=== PATIENT | male | born 1985 | race Caucasian/White ===

== ENCOUNTER 2023-07-21 17:04 | Emergency (ER) | payer MEDICAID ==
[~2023-07-21] VITALS: Ht 180.3 cm; Wt 73.0 kg
[2023-07-21 17:08] VITALS: O2SAT 98
[2023-07-21 17:44] LABS: BASOPHILS % 0.1 % (0.0-2.0); EOSINOPHILS % 1.7 % (0.0-5.0); HEMATOCRIT. 43.3 % (42.0-52.0); HEMOGLOBIN. 14.6 g/dL (14.0-18.0); LYMPHOCYTES % 18.7 % (20.0-50.0); MEAN CORPUSCULAR HEMOGLOBIN 30.6 pg (28.0-32.0); MEAN CORPUSCULAR HGB CONC 33.8 g/dL (31.0-37.0); MEAN CORPUSCULAR VOLUME 90.5 fL (80.0-94.0); MONOCYTES % 6.2 % (2.0-8.0); NEUTROPHILS % 73.3 % (40.0-76.0); RED BLOOD CELL COUNT 4.78 mill/uL (4.7-6.1); RED CELL DISTRIBUTION WIDTH 12.5 % (11.6-14.6); WHITE BLOOD COUNT 11.1 x1000/uL (4.5-11.0)
[2023-07-21 17:48] LABS: CLARITY URINE CLEAR (CLEAR); COLOR URINE YELLOW (YELLOW); GLUCOSE URINE NEGATIVE (NEGATIVE); KETONES URINE NEGATIVE (NEGATIVE); LEUKOCYTE ESTERASE URINE NEGATIVE (NEGATIVE); NITRITE URINE NEGATIVE (NEGATIVE); OCCULT BLOOD URINE NEGATIVE (NEGATIVE); PROTEIN URINE NEGATIVE (NEGATIVE); SPECIFIC GRAVITY URINE 1.003 (1.005-1.030); UROBILINOGEN URINE 0.2 E.U./dL (0.2-1.0)
[2023-07-21 17:48] LABS: CHLORIDE 102 mEq/L (98-107); INDEX HEMOLYSI 1 (1-3); INDEX ICTERIC 1 (1-4); INDEX LIPEMIC 1 (1-3); POTASSIUM 3.7 mEq/L (3.5-5.1); SODIUM 135 mEq/L (136-145)
[2023-07-21 17:49] LABS: DIFFERENTIAL COMMENT 1
[2023-07-21 17:55] LABS: ALANINE AMINOTRANSFERASE 46 IU/L (13-61); ALBUMIN 3.7 g/dL (3.4-5.0); ASPARTATE AMINOTRANSFERASE 17 IU/L (15-37); BILIRUBIN TOTAL 0.3 mg/dL (0.1-1.0); CALCIUM 8.7 mg/dL (8.5-10.1); CARBON DIOXIDE 30 mEq/L (21-32); GLUCOSE 102 mg/dL (70-105); PROTEIN TOTAL 7.8 g/dL (6.0-8.3); UREA NITROGEN BLOOD 12 mg/dL (7-21)
[2023-07-21 18:30] LABS: MEAN PLATELET VOLUME 8.3 fl (7.4-10.4); PLATELET 311 x1000/uL (130-400)
[2023-07-21] MEDS ORDERED: OXYCODONE HCL/ACETAMINOPHEN 5/325MG TABLET PO NR (18:45)
[2023-07-22] MEDS ORDERED: IOHEXOL-300 100 ML BOTTLE ONE (06:02)
[2023-07-22] MEDS ORDERED: ACET-2708 MT (09:03)
[2023-07-22 09:45] VITALS: BP 134/87; PULSE 82; RESP 20; TEMP 98.7
== END 2023-07-22 09:46 | disposition home or self-care (01) ==
LOC: ER 17:04
DX: R50.9 Fever, unspecified (principal)
CPT/HCPCS: 80053; 81003; 83690; 85025; 36415; 74177; 99285; Z7610; Q9967

== ENCOUNTER 2024-02-07 13:21 | Emergency (ER) | payer MEDICAID ==
[~2024-02-07] VITALS: Ht 180.3 cm; Wt 73.5 kg
[~2024-02-07 13:21] MED LIST: ACET-2708 MT
[2024-02-07 13:29] VITALS: O2SAT 97
[2024-02-07] MEDS: CYCLOBENZAPRINE 10MG TABLET PO ONE (15:45)
[2024-02-07] MEDS: ACETAMINOPHEN 500MG TABLET PO ONE (15:45)
[2024-02-07] MEDS ORDERED: CYCL10TA21 MT (15:49)
[2024-02-07] MEDS ORDERED: ACET-2708 MT (15:49)
[2024-02-07 16:11] VITALS: BP 108/56; PULSE 70; RESP 18; TEMP 97.8
== END 2024-02-07 16:12 | disposition home or self-care (01) ==
LOC: ER 13:21
DX: M54.50 Low back pain, unspecified (principal); Z88.6 Allergy status to analgesic agent
CPT/HCPCS: 99283

== ENCOUNTER 2025-03-23 09:55 | Emergency (ER) | payer OTHER ==
[~2025-03-23] VITALS: Ht 175.3 cm; Wt 66.0 kg
[~2025-03-23 09:55] MED LIST changes: +CYCL10TA21 MT
[2025-03-23 10:04] VITALS: O2SAT 100
[2025-03-23] MEDS: FLUORESCEIN SODIUM 1MG/STRIP LEFTEYE ONE (11:01)
[2025-03-23] MEDS: TETRACAINE 0.5% OPHTH DROPS 4ML LEFTEYE ONE (11:01)
[2025-03-23] MEDS ORDERED: TOBR3.5O LEFTEYE (11:34)
[2025-03-23] MEDS ORDERED: CLIN-116 MT (11:39)
[2025-03-23 11:58] VITALS: BP 123/81; PULSE 93; RESP 18; TEMP 37.2; O2SAT 100
== END 2025-03-23 12:28 | disposition home or self-care (01) ==
LOC: ER 09:55
DX: H57.12 Ocular pain, left eye (principal); Z88.6 Allergy status to analgesic agent; Z79.899 Other long term (current) drug therapy
CPT/HCPCS: 99283; Z7610